=== PATIENT | male | born 1970 | race Caucasian/White ===

== ENCOUNTER 2016-06-13 20:41 | Emergency (ER) | payer OTHER ==
[~2016-06-13] VITALS: Ht 177.8 cm; Wt 88.0 kg
[2016-06-13 20:55] VITALS: BP 155/88
== END 2016-06-13 22:51 | disposition home or self-care (01) ==
LOC: ER 20:49
DX: T14.8 Other injury of unspecified body region (principal); Z04.1 Encounter for examination and observation following transport accident; V43.52XA Car driver injured in collision with other type car in traffic accident, initial encounter; Y93.89 Activity, other specified; Y92.89 Other specified places as the place of occurrence of the external cause; Y99.8 Other external cause status